=== PATIENT | male | born 1995 | race Caucasian/White ===

== ENCOUNTER 2018-02-23 19:24 | Observation (INO) ==
[2018-02-23 19:42] VITALS: BMI 37.0
--- NOTE | 2018-02-23 20:17 | DR.ABDMALE ---
HPI Time seen Time Seen by Provider: 02/23/18 20:08 PCP Primary Care Physician: LEAH YOUSSEF Complaint Chief Complaint Doctors Comments: I agree with statement as written Chief Complaint:: " PAIN IN LOWER RIGHT SIDE OF ABD AREA NOT SURE IF I PULLED SOMETHING I PICKED UP A DEER IN THE [place] AND CARRIED IT OUT AND IT HAS BEEN HURTING SINCE. IF I BREATH IN DEEP IT HURTS OR IF I MOVE A CERTAIN WAY IT HURTS" Self Treatment fo Chief Complaint: MOTRIN 400MG @ 1300 Mode of arrival Mode of Arrival: Ambulatory Timing Onset of Chief Complaint: 02/23/18 PMH PMH Past Medical History: No Past Surgical History: Yes Surgical History: Ortho Surgery and Tonsillectomy Family History History of Family Medical Conditions: No Social History Alcohol Use: None Do you use any recreational Drugs:: No infectious screening Have you traveled outside the country in the last 6 months?: No PE Vital Signs Vital Signs: Temp Pulse Pulse Resp BP BP Pulse Ox 02/24/18 21:30 64 20 134/63 98 02/24/18 20:00 97.3 F L 61 20 118/64 99 02/24/18 15:50 98.1 F 62 18 118/57 99 02/24/18 14:50 97.6 F 71 18 127/65 97 02/24/18 13:50 97.9 F 60 16 131/65 96 02/24/18 12:50 97.7 F 58 L 18 129/62 98 02/24/18 11:50 97.7 F 60 18 130/66 98 02/24/18 10:50 97.6 F 81 18 125/50 96 02/24/18 10:35 97.6 F 76 18 124/55 94 L 02/24/18 10:20 97.7 F 59 L 18 126/59 93 L 02/24/18 10:05 97.7 F 68 18 129/58 93 L 02/24/18 09:50 98.1 F 62 62 18 131/60 131/60 93 L 02/24/18 09:41 67 20 136/63 99 02/24/18 09:36 71 20 136/62 99 02/24/18 09:31 62 20 134/62 99 02/24/18 09:26 65 20 137/64 99 02/24/18 09:21 77 18 139/63 99 02/24/18 09:16 76 20 140/65 97 02/24/18 09:11 98.1 F 92 H 20 139/62 99 02/24/18 08:00 98.2 F 76 20 116/56 98 02/24/18 04:00 98.2 F 76 18 110/58 99 02/24/18 00:20 98.3 F 90 20 134/72 98 02/24/18 00:16 85 18 142/72 99 02/23/18 19:34 98.4 F 92 H 18 135/73 98 03/18/14 12:13 121/72 General Limitations: No Limitations General Appearance: Alert and In No Apparent Distress Head Head Exam: Normal Inspection, Atraumatic and Normocephalic Eyes Eye exam: Normal Appearance, PERRL and EOMI ENT ENT Exam: Normal Exam, Normal Oropharynx and Normal External Ear Exam Neck Neck Exam: Normal Inspection Chest Chest Inspection: Normal Inspection and Symmetric Chest Wall Rise Respiratory Respiratory Exam: Normal Lung Sounds Bilat and Accessory Muscle Use Respiratory Exam: Bilateral: Clear to Auscultation Cardiovascular Cardiovascular Exam: Regular Rate and Normal Rhythm Abdominal Exam Abdominal Exam: Normal Inspection, Normal Bowel Sounds, Soft and Tenderness (RLQ ) Abdominal Tenderness: RLQ Rectal Rectal Exam: Deferred Back Back Exam: Normal Inspection and Full ROM Exam: Male: Deferred Neurologic Neurological Exam: Alert, Oriented X3 and CN II-XII Intact Psychiatric Psychiatric Exam: Normal Affect and Normal Mood Skin Skin Exam: Warm, Dry and Normal Color COURSE Consultation Called: 23:00 Consultation Comments: Contacted Dr. Villa who agreed to admit for further treatment Education/Counseling Education/Counseling: Patient ROR Labs Reviewed Result Diagrams: 02/24/18 05:28 02/24/18 05:28 Laboratory: WBC 12.4 X10^3/uL (3.6-10.0) H 02/24/18 05:28 RBC 4.54 X10^6/uL (4.7-6.0) L 02/24/18 05:28 Hgb 12.8 g/dL (13.5-18.0) L 02/24/18 05:28 Hct 37.3 % (42.0-54.0) L 02/24/18 05:28 MCV 82.0 fL (80.0-100.0) 02/24/18 05:28 MCH 28.1 pg (27.0-34.0) 02/24/18 05:28 MCHC 34.2 g/dL (33.0-35.0) 02/24/18 05:28 RDW 13.3 % (11.6-16.5) 02/24/18 05:28 Plt Count 285 X10^3/uL (150.0-450.0) 02/24/18 05:28 MPV 7.6 fL (7.4-11.0) 02/24/18 05:28 Neut % (Auto) 64.9 % (42.0-75.0) 02/24/18 05:28 Lymph % (Auto) 25.6 % (21.0-51.0) 02/24/18 05:28 Dukes % (Auto) 8.1 % (0.0-13.0) 02/24/18 05:28 Eos % (Auto) 1.1 % (0.9-2.9) 02/24/18 05:28 Baso % (Auto) 0.3 % (0.2-1.0) 02/24/18 05:28 Neut # (Auto) 8.0 x10^3/uL (2.2-4.8) H 02/24/18 05:28 Lymph # (Auto) 3.2 X10^3/uL (1.3-2.9) H 02/24/18 05:28 Dukes # (Auto) 1.0 x10^3/uL (0.3-0.8) H 02/24/18 05:28 Eos # (Auto) 0.1 x10^3/uL (0.0-0.2) 02/24/18 05:28 Baso # (Auto) 0.0 X10^3/uL (0.0-0.1) 02/24/18 05:28 Absolute Nucleated RBC 0.0 /100WBC 02/24/18 05:28 Sodium 140 mmol/L (136-145) 02/24/18 05:28 Corrected Sodium TNP 02/24/18 05:28 Potassium 3.9 mmol/L (3.5-5.1) 02/24/18 05:28 Chloride 104 mmol/L (98-107) 02/24/18 05:28 Carbon Dioxide 29.4 mmol/L (21-32) 02/24/18 05:28 BUN 13 mg/dL (7-18) 02/24/18 05:28 Creatinine 1.11 mg/dL (0.70-1.30) 02/24/18 05:28 Est GFR (MDRD) Af Amer > 60 (>60) 02/24/18 05:28 Est GFR (MDRD) Non-Af > 60 (>60) 02/24/18 05:28 Glucose 103 mg/dL (65-99) H 02/24/18 05:28 Calcium 8.2 mg/dL (8.5-10.1) L 02/24/18 05:28 Corrected Calcium 8.8 mg/dL (8.5-10.1) 02/24/18 05:28 Total Bilirubin 0.70 mg/dL (0.2-1.0) 02/24/18 05:28 AST 26 Units/L (15-37) 02/24/18 05:28 ALT 46 Units/L (12-78) 02/24/18 05:28 Alkaline Phosphatase 71 Units/L (46-116) 02/24/18 05:28 C-Reactive Protein 20.40 mg/L (0-3.0) H 02/23/18 23:00 Total Protein 6.8 g/dL (6.4-8.2) 02/24/18 05:28 Albumin 3.2 g/dL (3.4-5.0) L 02/24/18 05:28 Globulin 3.6 g/dL (2.5-4.5) 02/24/18 05:28 Albumin/Globulin Ratio 0.9 Ratio (1.1-2.1) L 02/24/18 05:28 Amylase 38 Units/L (25-115) 02/23/18 23:00 Lipase 113 Units/L (73-393) 02/23/18 23:00 Tissue Pathology To follow 02/24/18 10:17 Other Results Comments: ...The appendix is diffusely dilated/thickened with adjacent fat stranding. No radiopaque appendicolith is identified. There is no discrete collection or significant free fluid. Several mildly enlarged right lower quadrant mesenteric lymph nodes are likely reactive. The remainder of the lower GI tract is otherwise unremarkable. The urinary bladder,prostate and rectum are unremarkable. Impression: Acute uncomplicated appendicitis. Instructions Instructions: Laparoscopic Appendectomy, Adult, Care After, [id number] Forms: Patient Portal
[2018-02-23 23:06] LABS: BASOPHILS # (AUTO) 0.1 X10^3/uL (0.0-0.1); BASOPHILS % (AUTO) 0.3 % (0.2-1.0); EOSINOPHILS % (AUTO) 0.2 % (0.9-2.9); HEMATOCRIT 40.2 % (42.0-54.0); HEMOGLOBIN 13.9 g/dL (13.5-18.0); LYMPHOCYTES # (AUTO) 2.8 X10^3/uL (1.3-2.9); LYMPHOCYTES % (AUTO) 16.7 % (21.0-51.0); MEAN CORPUSCULAR HEMOGLOBIN 28.2 pg (27.0-34.0); MEAN CORPUSCULAR HGB CONC 34.7 g/dL (33.0-35.0); MEAN CORPUSCULAR VOLUME 81.4 fL (80.0-100.0); MEAN PLATELET VOLUME 7.5 fL (7.4-11.0); MONOCYTES # (AUTO) 1.2 x10^3/uL (0.3-0.8); MONOCYTES % (AUTO) 7.3 % (0.0-13.0); NEUTROPHILS # (AUTO) 12.7 x10^3/uL (2.2-4.8); NEUTROPHILS % (AUTO) 75.5 % (42.0-75.0); PLATELET COUNT 320 X10^3/uL (150.0-450.0); RED BLOOD COUNT 4.94 X10^6/uL (4.7-6.0); RED CELL DISTRIBUTION WIDTH 13.1 % (11.6-16.5); WHITE BLOOD COUNT 16.9 X10^3/uL (3.6-10.0)
[2018-02-23] MEDS: NS 1000 ML 1,000 ML IV SCH (23:09)
[2018-02-23 23:17] LABS: ALANINE AMINOTRANSFERASE 56 Units/L (12-78); ALBUMIN 3.9 g/dL (3.4-5.0); ALKALINE PHOSPHATASE 83 Units/L (46-116); ASPARTATE AMINO TRANSFERASE 33 Units/L (15-37); BLOOD UREA NITROGEN 14 mg/dL (7-18); CALCIUM 8.7 mg/dL (8.5-10.1); CARBON DIOXIDE 29.1 mmol/L (21-32); CHLORIDE 101 mmol/L (98-107); CREATININE 1.17 mg/dL (0.70-1.30); SODIUM 138 mmol/L (136-145); TOTAL PROTEIN 7.9 g/dL (6.4-8.2); eGFR NON BLACK RACES > 60 (>60)
[2018-02-23] MEDS ORDERED: MORPHINE SULFATE INJ 4 MG IVP PRN (23:42)
[2018-02-24] MEDS ORDERED: ANCEF VIAL 1 GRAM ONE ×2 (00:04→04:39)
[2018-02-24 00:09] LABS: AMYLASE 38 Units/L (25-115); LIPASE 113 Units/L (73-393)
[2018-02-24] MEDS: ANCEF VIAL 1 GRAM IVP SCH ×2 (00:13→05:12)
[2018-02-24 05:40] LABS: BASOPHILS % (AUTO) 0.3 % (0.2-1.0); EOSINOPHILS # (AUTO) 0.1 x10^3/uL (0.0-0.2); EOSINOPHILS % (AUTO) 1.1 % (0.9-2.9); HEMATOCRIT 37.3 % (42.0-54.0); HEMOGLOBIN 12.8 g/dL (13.5-18.0); LYMPHOCYTES # (AUTO) 3.2 X10^3/uL (1.3-2.9); LYMPHOCYTES % (AUTO) 25.6 % (21.0-51.0); MEAN CORPUSCULAR HEMOGLOBIN 28.1 pg (27.0-34.0); MEAN CORPUSCULAR HGB CONC 34.2 g/dL (33.0-35.0); MEAN PLATELET VOLUME 7.6 fL (7.4-11.0); MONOCYTES % (AUTO) 8.1 % (0.0-13.0); NEUTROPHILS % (AUTO) 64.9 % (42.0-75.0); PLATELET COUNT 285 X10^3/uL (150.0-450.0); RED BLOOD COUNT 4.54 X10^6/uL (4.7-6.0); RED CELL DISTRIBUTION WIDTH 13.3 % (11.6-16.5); WHITE BLOOD COUNT 12.4 X10^3/uL (3.6-10.0)
[2018-02-24 05:51] LABS: ALANINE AMINOTRANSFERASE 46 Units/L (12-78); ALBUMIN 3.2 g/dL (3.4-5.0); ALKALINE PHOSPHATASE 71 Units/L (46-116); ASPARTATE AMINO TRANSFERASE 26 Units/L (15-37); BLOOD UREA NITROGEN 13 mg/dL (7-18); CALCIUM 8.2 mg/dL (8.5-10.1); CARBON DIOXIDE 29.4 mmol/L (21-32); CHLORIDE 104 mmol/L (98-107); COR CA(FOR HYPOALB) 8.8 mg/dL (8.5-10.1); CREATININE 1.11 mg/dL (0.70-1.30); SODIUM 140 mmol/L (136-145); TOTAL PROTEIN 6.8 g/dL (6.4-8.2); eGFR NON BLACK RACES > 60 (>60)
[2018-02-24] MEDS ORDERED: LR 1000 ML IV 1,000 ML IV ONE (07:19)
[2018-02-24] MEDS ORDERED: ANCEF 1 GRAM IV PREMIX* 1 G/50 ML BAG IV ONE (07:19)
[2018-02-24] MEDS ORDERED: FENTANYL INJ 250 mcg ONE (07:58)
[2018-02-24] MEDS ORDERED: BACITRACIN VIAL ONE (08:53)
[2018-02-24] MEDS ORDERED: BACTROBAN TOPICAL OINT ONE (09:02)
[2018-02-24] MEDS ORDERED: BENADRYL INJ 50 MG VIAL IVP PRN (09:14)
[2018-02-24] MEDS ORDERED: ZOFRAN INJ 4 MG VIAL IVP PRN (09:14)
[2018-02-24] MEDS ORDERED: REGLAN INJ 10 MG VIAL IVP PRN (09:14)
[2018-02-24] MEDS ORDERED: PHENERGAN INJ 25 MG IVP PRN (09:14)
[2018-02-24] MEDS ORDERED: DILAUDID INJ IVP PRN (09:14)
[2018-02-24] MEDS ORDERED: ZOSYN VIAL 3.375 GRAMS 3.375 G in NS 100 ML IV + SPIKE MINIBAG* 100 ML IV SCH (10:00)
[2018-02-24] MEDS ORDERED: D5 1/2 NS 1000 ML 1,000 ML IV SCH (10:00)
[2018-02-24] MEDS: DILAUDID INJ IVP PRN ×2 (13:15→21:07)
[2018-02-24] MEDS: NS 1000 ML 1,000 ML IV SCH (13:25)
[2018-02-24] MEDS ORDERED: NORCURON INJ 10 MG VIAL ONE (14:42)
[2018-02-24] MEDS ORDERED: SUPRANE IN ONE (14:42)
[2018-02-24] MEDS ORDERED: QUELICIN (OR ANECTINE) ONE (14:42)
[2018-02-24] MEDS ORDERED: NEOSTIGMINE INJ ONE (14:42)
[2018-02-24] MEDS ORDERED: ROBINUL ONE (14:42)
[2018-02-24] MEDS ORDERED: ZOFRAN INJ 4 MG VIAL ONE ×2 (14:42→19:28)
[2018-02-24] MEDS ORDERED: TORADOL 30 MG VIAL ONE (14:42)
[2018-02-24] MEDS ORDERED: DIPRIVAN VIAL ONE (14:42)
[2018-02-24] MEDS ORDERED: VERSED ONE (14:42)
[2018-02-24] MEDS: FLAGYL IV PREMIX 500 MG BAG 500 MG/100 ML BAG IV SCH ×2 (15:30→20:04)
[2018-02-24] MEDS ORDERED: ZOFRAN INJ 4 MG VIAL IVP ONE (19:28)
[2018-02-24 22:00] VITALS: BP 134/63
== END 2018-02-24 21:30 | disposition home or self-care (01) ==
LOC: ER 19:33 → OBS 19:33
PROVIDERS: ADMIT Internal Medicine; ATTEND Internal Medicine
PROC: APPYLAP (ICD-10-PCS; 2018-02-24 07:45)
DX: D72.828 Other elevated white blood cell count; K35.890 Other acute appendicitis without perforation or gangrene; R79.82 Elevated C-reactive protein (CRP); R10.31 Right lower quadrant pain
CPT/HCPCS: 36415; 74177; 80053; 82150; 83690; 85025; 86140; 96365; 96367; 96374; 99283; 99284; A4216; A4222; S0030; G0378; J0330; J0690; J1170; J1885; J2250; J2270; J2405; J2543; J2704; J2710; J3010; J3490; J7030; J7050; J7120; S5010